=== PATIENT | male | born 1940 | race African-American/Black ===

== ENCOUNTER 2020-08-19 14:59 | Emergency (ER) | payer OTHER ==
[~2020-08-19] VITALS: Ht 170.2 cm; Wt 72.0 kg
[2020-08-19 15:30] VITALS: BP 152/98
== END 2020-08-19 16:08 | disposition home or self-care (01) ==
LOC: ER 15:07
DX: T82.838A Hemorrhage due to vascular prosthetic devices, implants and grafts, initial encounter (principal); X58.XXXA Exposure to other specified factors, initial encounter; Z53.29 Procedure and treatment not carried out because of patient's decision for other reasons; I10 Essential (primary) hypertension; Z99.2 Dependence on renal dialysis; Z98.890 Other specified postprocedural states
CPT/HCPCS: 99283